=== PATIENT | female | born 1960 | race Caucasian/White ===

== ENCOUNTER 2017-11-07 15:48 | Emergency (ER) | payer OTHER ==
[2017-11-07] MEDS ORDERED: Sodium Chloride 0.9% 1,000 ML IV ONE ×2 (18:09→19:57)
--- NOTE | 2017-11-07 18:14 | C.PDOC ---
History Of Present Illness 57 year old female presents to the ED c/o of epigastric and RUQ pain for the past 3 days. Patient also reports having nausea, bilious vomiting, chills and a yellowish non bloody diarrhea as well. Patient reports she has been trying to keep down liquids drinking Gatorade, soups. Patient denies fever, body aches, recent travel, sick contacts. Time Seen by Provider: 11/07/17 18:01 Chief Complaint (Nursing): GI Problem History Per: Patient History/Exam Limitations: no limitations Onset/Duration Of Symptoms: Days Location Of Pain/Discomfort: RUQ, Epigastric Radiation Of Pain To:: None Quality Of Discomfort: "Pain" Associated Symptoms: Chills, Nausea, Vomiting, Diarrhea Exacerbating Factors: None Alleviating Factors: None Recent travel outside of the [place]: No Additional History Per: Patient Abnormal Vaginal Bleeding: No Past Medical History Reviewed: Historical Data, Nursing Documentation, Vital Signs Vital Signs: Last Vital Signs Temp 98.4 F 11/07/17 22:24 Pulse 63 11/07/17 22:24 Resp 18 11/07/17 22:24 BP 98/59 L 11/07/17 22:24 Pulse Ox 97 11/07/17 22:24 - Medical History PMH: HTN Denies: HIV, Seizures, Sexually Transmitted Disease Surgical History: No Surg Hx Family History: States: Unknown Family Hx - Social History Hx Tobacco Use: No Hx Alcohol Use: No Hx Substance Use: No - Immunization History Hx Tetanus Toxoid Vaccination: Yes Hx Influenza Vaccination: No Hx Pneumococcal Vaccination: No Review Of Systems Constitutional: Positive for: Chills. Negative for: Fever Cardiovascular: Negative for: Chest Pain Respiratory: Negative for: Cough Gastrointestinal: Positive for: Nausea, Vomiting, Abdominal Pain, Diarrhea Genitourinary: Negative for: Dysuria, Hematuria Musculoskeletal: Negative for: Back Pain Skin: Negative for: Rash Neurological: Negative for: Weakness, Numbness Physical Exam - Physical Exam Appears: Non-toxic, No Acute Distress Skin: Normal Color, Warm, Dry Head: Atraumatic, Normacephalic Eye(s): bilateral: Normal Inspection Nose: No Discharge, No Deformity Oral Mucosa: Dry Neck: Normal ROM, Supple Chest: Symmetrical Cardiovascular: Rhythm Regular, No Murmur Respiratory: Normal Breath Sounds, No Rales, No Rhonchi, No Wheezing Gastrointestinal/Abdominal: Soft, Tenderness (epigastrum, RUQ), No Guarding, No Rebound Extremity: Normal ROM, No Pedal Edema, No Calf Tenderness, No Deformity, No Swelling Neurological/Psych: Oriented x3, Normal Speech, Normal Cognition Gait: Steady ED Course And Treatment - Laboratory Results Result Diagrams: 11/07/17 18:54 11/07/17 18:54 Lab Interpretation: Abnormal (WBC 12.2, Hgb 16.7, Na 130, K+ 3.2, BUN 14, Cr 1.4 , mild elevation of LFTs) O2 Sat by Pulse Oximetry: 98 (On RA) Pulse Ox Interpretation: Normal - CT Scan/US Abdominal ultrasound Other Rad Studies (CT/US): Read By Radiologist, Radiology Report Reviewed CT/US Interpretation: IMPRESSION: Cholelithiasis without evidence of cholecystitis Progress Note: Patient treated with IV fluids, Zofran and Morphine In ED. Reevaluation Time: 00:56 Reassessment Condition: Improved Medical Decision Making Medical Decision Making: Impression : abdominal pain, nausea, vomit, diarrhea Plan: * Labs * UA * Morphine 2 mg IVP * Zofran 4 mg IVP Disposition Counseled Patient/Family Regarding: Studies Performed, Diagnosis, Need For Followup, Rx Given - Disposition Referrals: Mary Valadez MD [Staff Provider] - Disposition: HOME/ ROUTINE Disposition Time: 00:59 Condition: IMPROVED Prescriptions: Ondansetron ODT [Zofran ODT] 1 odt PO BID PRN #6 odt PRN Reason: Nausea/Vomiting oxyCODONE/Acetaminophen [Percocet 5/325 mg Tab] 1 tab PO QID PRN #10 tab PRN Reason: Pain Instructions: Gastroenteritis (ED) Forms: [employer] (Citizen Of [place]) Print Language: AMHARIC - Clinical Impression Clinical Impression: Gastroenteritis - Scribe Statement The provider has reviewed the documentation as recorded by the Scribe Bereket Reid All medical record entries made by the Scribe were at my direction and personally dictated by me. I have reviewed the chart and agree that the record accurately reflects my personal performance of the history, physical exam, medical decision making, and the department course for this patient. I have also personally directed, reviewed, and agree with the discharge instructions and disposition.
[2017-11-07] MEDS ORDERED: Sodium Chloride 0.9% 1,000 ML ONE ×2 (18:36→20:03)
[2017-11-07] MEDS ORDERED: Morphine 4 MG/ML VIAL ONE (18:36)
[2017-11-07 19:00] LABS: BASO # 0.1 K/uL (0.0-0.2); BASO % 0.9 % (0.0-2.0); EOS # 0.1 K/uL (0.0-0.7); EOS % 0.9 % (0.0-4.0); HEMOGLOBIN 16.7 g/dL (11.0-16.0); LYMPH # 2.4 K/uL (1.0-4.3); MEAN CELL VOLUME 82.7 fL (81.0-99.0); MEAN CORPUSCULAR HEMOGLOBIN 27.9 pg (27.0-31.0); MEAN CORPUSCULAR HGB CONC 33.8 g/dL (33.0-37.0); MEAN PLATELET VOLUME 9.2 fL (7.2-11.7); MONO # 1.2 K/uL (0.0-0.8); MONO % 9.7 % (0.0-10.0); NEUT # 8.3 K/uL (1.8-7.0); NEUT % 68.5 % (50.0-75.0); NRBC % 0.1 % (0.0-2.0); RED CELL DISTRIBUTION WIDTH 14.4 % (11.5-14.5); WHITE BLOOD COUNT 12.2 K/uL (4.8-10.8)
[2017-11-07 19:13] LABS: ALBUMIN 4.6 g/dL (3.5-5.0); CALCIUM 9.7 mg/dl (8.6-10.4)
[2017-11-07 20:10] VITALS: RESP 18
[2017-11-07 21:29] LABS: SQUAMOUS EPITHIAL < 1 /hpf (0-5); URINE BACTERIA RARE (<OCC); URINE BILIRUBIN NEGATIVE (NEGATIVE); URINE BLOOD NEGATIVE (NEGATIVE); URINE CALCIUM OXALATE CRYSTALS OCC /hpf (<OCC); URINE CLARITY Hazy (Clear); URINE COLOR Yellow (YELLOW); URINE GLUCOSE (UA) NORMAL (Normal); URINE LEUKOCYTE ESTERASE NEG Leu/uL (Negative); URINE NITRATE NEGATIVE (NEGATIVE); URINE PROTEIN 2+ mg/dL (NEGATIVE); URINE UROBILINOGEN NORMAL mg/dL (0.2-1.0)
--- NOTE | 2017-11-08 00:54 | US ---
EXAM: US Abdomen Complete EXAM DATE/TIME: 11/07/2017 9:36 PM CLINICAL HISTORY: 57 years old, female; Pain; Abdominal pain; Generalized; Additional info: Ruq pain with vomiting TECHNIQUE: Real-time ultrasound of the abdomen (complete) with image documentation. COMPARISON: No relevant prior studies available. FINDINGS: There is a negative sonographic Alicea's sign per electroneurodiagnostic technologist. Gallstones are present. No pericholecystic fluid. The gallbladder wall measures 2 mm which is within normal limits. The common bile duct measures 5 mm which is within normal limits. The liver is increased in echogenicity consistent with fatty infiltration. The spleen is normal and measures 9 cm. The visualized pancreas is normal. The pancreatic duct measures 3 mm which is the upper limits of normal. No hydronephrosis. Both kidneys measure 11 cm in length. There is a 1.6 cm left renal cyst. There is suggestion of calcification along the posterior wall, thus followup is recommended to assess stability. IMPRESSION: Cholelithiasis without evidence of cholecystitis.
[2017-11-08 00:59] VITALS: O2SAT 98
[2017-11-08 01:05] VITALS: BP 95/56; PULSE 57; TEMP 98.6
--- NOTE | 2017-11-08 08:40 | RAD ---
Chest x-ray two views History: Low pulse ox. Comparison: 03/27/2016 Findings: No focal infiltrate or effusion. Heart size within normal limits. Degenerative changes in the spine. Impression: No focal infiltrate or effusion.
== END 2017-11-08 01:11 | disposition home or self-care (01) ==
LOC: C.ER 15:48
DX: K52.9 Noninfective gastroenteritis and colitis, unspecified (principal)
CPT/HCPCS: 71046; 76700; 80053; 81001; 83690; 85025; 96361; 96374; 96375; 99285; J2270; J2405; J7040